=== PATIENT | male | born 1960 | race Caucasian/White ===

== ENCOUNTER 2018-03-15 08:54 | Day surgery (SDC) | payer MEDICARE, OTHER ==
[2018-03-15] MEDS ORDERED: PREG300C PO (11:05)
== END 2018-03-15 12:18 | disposition home or self-care (01) ==
LOC: WOUND CARE 08:54
PROVIDERS: ATTEND Surgery
DX: L97.521 Non-pressure chronic ulcer of other part of left foot limited to breakdown of skin (principal); G62.9 Polyneuropathy, unspecified; I10 Essential (primary) hypertension
CPT/HCPCS: 11042; A6021; A6206; A6446

== ENCOUNTER 2018-03-22 10:00 | Day surgery (SDC) | payer MEDICARE, OTHER ==
[~2018-03-22 10:00] MED LIST: PREG300C PO
== END 2018-03-22 12:29 | disposition home or self-care (01) ==
LOC: WOUND CARE 10:00
PROVIDERS: ATTEND Surgery
DX: L97.522 Non-pressure chronic ulcer of other part of left foot with fat layer exposed (principal); G62.9 Polyneuropathy, unspecified; I10 Essential (primary) hypertension
CPT/HCPCS: 11042; A6209; A6222; A6446

== ENCOUNTER 2018-03-29 09:48 | Day surgery (SDC) | payer MEDICARE, OTHER ==
[2018-03-29] MEDS ORDERED: LIDOcaine 2% 5ml jelly ONE (11:34)
[2018-03-29] MEDS ORDERED: CIPR-259 PO (15:02)
== END 2018-03-29 12:15 | disposition home or self-care (01) ==
LOC: WOUND CARE 09:48
PROVIDERS: ATTEND Surgery
DX: L89.899 Pressure ulcer of other site, unspecified stage (principal); L97.522 Non-pressure chronic ulcer of other part of left foot with fat layer exposed; G62.9 Polyneuropathy, unspecified; I10 Essential (primary) hypertension
CPT/HCPCS: 11042; 87070; 87075; 87077; 87102; 87176; 87186; A6207; A6209; A6266; A6446

== ENCOUNTER 2018-04-01 10:07 | Day surgery (SDC) | payer MEDICARE, OTHER ==
[~2018-04-01 10:07] MED LIST changes: +CIPR-259 PO
[2018-04-01] MEDS ORDERED: LIDOcaine 2% 5ml jelly ONE (11:02)
[2018-04-01] MEDS ORDERED: LIDOcaine 1%/PF 5ML 10 MG/ML VIAL ONE ×2 (11:10→11:14)
== END 2018-04-01 12:04 | disposition home or self-care (01) ==
LOC: WOUND CARE 10:07
PROVIDERS: ATTEND Surgery
DX: L89.899 Pressure ulcer of other site, unspecified stage (principal); L97.522 Non-pressure chronic ulcer of other part of left foot with fat layer exposed; G62.9 Polyneuropathy, unspecified; I10 Essential (primary) hypertension
CPT/HCPCS: 11042; A6207; A6446; J2001

== ENCOUNTER 2018-04-05 10:12 | Outpatient (CLI) | payer MEDICARE, OTHER | END 2018-04-05 11:06 | disposition home or self-care (01) | LOC: WOUND CARE 10:12 → EDSTATUS 10:30 → WOUND CARE 11:06 | PROVIDERS: ATTEND Surgery | DX: L97.522 Non-pressure chronic ulcer of other part of left foot with fat layer exposed (principal); G62.9 Polyneuropathy, unspecified; I10 Essential (primary) hypertension | CPT/HCPCS: 99211; A6206; A6266; A6446 ==

== ENCOUNTER 2022-10-28 10:41 | Day surgery (SDC) | payer MEDICARE, OTHER ==
[2022-10-23 11:10] LABS: BASOPHILS % (AUTO) 0.5 % (0-1); EOSINOPHILS # (AUTO) 0.2 X10'3 (0-0.9); EOSINOPHILS % (AUTO) 2.2 % (0-6); HEMATOCRIT 45.2 % (42.0-52.0); HEMOGLOBIN 15.6 g/dl (14.0-17.9); LYMPHOCYTES # (AUTO) 3.8 X10'3 (1.1-4.8); LYMPHOCYTES % (AUTO) 42.5 % (21-51); MEAN CORPUSCULAR HEMOGLOBIN 30.2 PG (27.0-31.0); MEAN CORPUSCULAR HGB CONC 34.5 g/dL (33.0-36.5); MEAN CORPUSCULAR VOLUME 87.5 FL (78-98); MEAN PLATELET VOLUME 7.5 FL (7.4-10.4); MONOCYTES # (AUTO) 0.7 X10'3 (0-0.9); NEUTROPHILS # (AUTO) 4.2 X10'3 (1.8-7.7); NEUTROPHILS % (AUTO) 46.8 % (42-75); PLATELET COUNT 219 X10'3 (140-440); RED BLOOD COUNT 5.16 X10'6 (4.70-6.10); RED CELL DISTRIBUTION WIDTH 14.5 % (11.5-14.5)
[2022-10-23 11:21] LABS: APTT 29 SECONDS (22-32)
[2022-10-23 11:23] LABS: ALBUMIN 4.1 G/DL (3.4-5.0); ANION GAP 10 (8-16); BLOOD UREA NITROGEN 13 MG/DL (7-18); BUN/CREATININE RATIO 15.1 (5.4-32.0); CALCIUM 9.2 MG/DL (8.5-10.1); CHLORIDE 104 MMOL/L (99-107); CHOL/HDL RATIO 7.5 (0.00-4.99); CHOLESTEROL 256 MG/DL (0-200); CREATININE 0.86 MG/DL (0.60-1.10); GLUCOSE 167 MG/DL (70-104); HDL CHOLESTEROL 34 MG/DL (35-60); LDL CHOLESTEROL 74 MG/DL (50-100); POTASSIUM 3.9 MMOL/L (3.5-5.1); SODIUM 141 MMOL/L (135-145); TOTAL CARBON DIOXIDE 27.5 MMOL/L (24-32); TRIGLYCERIDES 987 MG/DL (20-135); eGFR 90 ML/MIN
[~2022-10-28] VITALS: Ht 188 cm; Wt 156.1 kg
[2022-10-28] VITALS (9 sets, daily range): BP systolic 132–159; BP diastolic 63–96
[2022-10-28] MEDS ORDERED: ASPI81TA52 PO (11:10)
[2022-10-28] MEDS ORDERED: MELO-102 PO (11:10)
[2022-10-28] MEDS ORDERED: LISI40TA13 PO (11:10)
[2022-10-28] MEDS ORDERED: PREG200C28 PO (11:10)
[2022-10-28] MEDS ORDERED: normal saline 1,000 ML IV SCH (11:35)
[2022-10-28] MEDS ORDERED: diphenhydrAMINE 25mg capsule PO PRN (11:35)
[2022-10-28] MEDS ORDERED: LORazepam 0.5 MG tablet PO PRN (11:35)
[2022-10-28] MEDS ORDERED: nitroGLYCERIN-Tridil 50MG/D5W 250 ML IV ONE (11:47)
[2022-10-28] MEDS ORDERED: midazolam 1 mg/ML 2ml injection ONE (11:47)
[2022-10-28] MEDS ORDERED: LIDOcaine 1% (10mg/ml) 2ml vial ONE (11:47)
[2022-10-28] MEDS ORDERED: fentaNYL/PF 50MCG/1 ML 2ML syringe ONE (11:47)
[2022-10-28] MEDS ORDERED: heparin 1,000unit/ml 10ml vial 10 ML ONE (11:47)
[2022-10-28] MEDS ORDERED: verapamil 2.5 mg/ml inj IV ONE (11:47)
[2022-10-28] MEDS ORDERED: iohexol 350MG/ML 100ml bottle IV ONE ×2 (11:48→12:52)
[2022-10-28] MEDS ORDERED: atropine 0.1mg/ml 10ml syringe ONE (12:39)
[2022-10-28] MEDS ORDERED: clopidogrel 300mg tablet ONE (13:12)
[2022-10-28] MEDS ORDERED: OXAZEpam 15mg capsule PO PRN (14:25)
[2022-10-28] MEDS ORDERED: proCHLORperazine 10 MG/2 ml inj IV PRN (14:25)
[2022-10-28] MEDS ORDERED: HYDROcodone/acetaminophen 10/325mg tab PO PRN (14:25)
[2022-10-28] MEDS ORDERED: HYDROcodone/acetaminophen 5mg/325mg tablet PO PRN (14:25)
[2022-10-28] MEDS ORDERED: ondansetron/PF 4mg/2ml inj IV PRN (14:25)
== END 2022-10-28 17:03 | disposition home or self-care (01) ==
LOC: SSTAY O 10:41
PROVIDERS: ATTEND Student in an Organized Health Care Education/Training Program
DX: R07.89 Other chest pain (principal); I25.10 Atherosclerotic heart disease of native coronary artery without angina pectoris; I10 Essential (primary) hypertension; G62.9 Polyneuropathy, unspecified; Z79.82 Long term (current) use of aspirin; Z79.899 Other long term (current) drug therapy; Z91.018 Allergy to other foods
CPT/HCPCS: 36415; 80048; 80061; 85025; 85610; 85730; 93005; 93458; 99152; 99153; C1725; C1751; C1769; C1874; C1894; C9600; J1644; J2250; J3010; J3490; J7030; Q9967; A6258; A6402; J0461